=== PATIENT | female | born 1970 | race Caucasian/White ===

== ENCOUNTER 2023-01-03 07:29 | Day surgery (SDC) | payer OTHER ==
[~2023-01-03] VITALS: Ht 160 cm; Wt 71.2 kg
[2023-01-03] MEDS ORDERED: MONTELUKAST SOD10 MG PO (08:50)
[2023-01-03] MEDS ORDERED: RELPAX40 MG PO (08:51)
[2023-01-03] MEDS ORDERED: PROTONIX40 M2 PO (08:52)
[2023-01-03] MEDS ORDERED: LIPITOR40 M1 PO (08:52)
[2023-01-03] MEDS ORDERED: BACLOFEN10 MG PO (08:52)
[2023-01-03] MEDS ORDERED: DICLOFENAC SODIUM1 % (08:53)
[2023-01-03] MEDS ORDERED: DICYCLOMINE HCL10 MG PO (08:54)
[2023-01-03] MEDS ORDERED: TOPIRAMATE50 MG PO (08:55)
[2023-01-03] MEDS ORDERED: RESTASIS0.05 % OU (08:55)
[2023-01-03 10:10] VITALS: BP 118/80
== END 2023-01-03 10:08 | disposition home or self-care (01) ==
LOC: ORM 07:29
PROVIDERS: ATTEND Physical Medicine & Rehabilitation Pain Medicine
DX: M54.12 Radiculopathy, cervical region (principal)

== ENCOUNTER 2023-02-14 08:06 | Day surgery (SDC) | payer OTHER ==
[~2023-02-14] VITALS: Ht 160 cm; Wt 71.7 kg
[~2023-02-14 08:06] MED LIST: BACLOFEN10 MG PO; DICLOFENAC SODIUM1 %; DICYCLOMINE HCL10 MG PO; LIPITOR40 M1 PO; MONTELUKAST SOD10 MG PO; PROTONIX40 M2 PO; RELPAX40 MG PO; RESTASIS0.05 % OU; TOPIRAMATE50 MG PO
[2023-02-14 11:50] VITALS: BP 102/70
== END 2023-02-14 11:10 | disposition home or self-care (01) ==
LOC: ORM 08:06
PROVIDERS: ATTEND Physical Medicine & Rehabilitation Pain Medicine
DX: G89.4 Chronic pain syndrome (principal); M54.12 Radiculopathy, cervical region
CPT/HCPCS: J1100; Q9967